=== PATIENT | female | born 1940 | race Caucasian/White ===

== ENCOUNTER 2023-02-24 12:38 | Emergency (ER) | payer MEDICARE, BC ==
[~2023-02-24] VITALS: Ht 162.6 cm; Wt 68.5 kg
[2023-02-24 12:42] VITALS: TEMP 97.9
[2023-02-24 13:35] LABS: BASOPHILS % (AUTO) 0.1 % (0.0-2.0); EOSINOPHILS % (AUTO) 0.4 % (0.0-6.0); HEMATOCRIT 32 % (33-45); HEMOGLOBIN 10.9 g/dL (11.5-14.8); INR 0.99 (0.91-1.10); LYMPHOCYTES # (AUTO) 0.4 K/uL (0.8-4.8); LYMPHOCYTES % (AUTO) 4.2 % (20.0-44.0); MEAN CORPUSCULAR HEMOGLOBIN 32 PG (26.0-33.0); MEAN CORPUSCULAR HGB CONC 34 g/dl (31.0-36.0); MEAN CORPUSCULAR VOLUME 95 fL (82-100); MONOCYTES # (AUTO) 0.3 K/uL (0.1-1.30); MONOCYTES % (AUTO) 2.8 % (2.0-12.0); NEUTROPHILS # (AUTO) 8.8 K/uL (1.8-8.9); NEUTROPHILS % (AUTO) 92.5 % (43.0-81.0); PLATELET COUNT (AUTO) 159 K/uL (150-450); PROTHROMBIN TIME 10.5 SECS (9.2-11.1); RED BLOOD CELL COUNT(AUTO) 3.37 MIL/uL (4.0-5.2); RED CELL DISTRIBUTION WIDTH 18.7 % (11.5-15.0); WHITE BLOOD COUNT (AUTO) 9.5 K/uL (4.3-11.0)
[2023-02-24 13:36] LABS: CALCIUM, SERUM 9.8 mg/dL (8.5-10.1); CARBON DIOXIDE 30 mmol/L (21-32); CHLORIDE 93 mmol/L (98-107); CREATININE 1.2 mg/dL (0.6-1.3); GLUCOSE 106 mg/dL (74-106); POTASSIUM 3.9 mmol/L (3.5-5.1); SODIUM SERUM 130 mmol/L (136-145); UREA NITROGEN, BLOOD 45 mg/dL (7-18)
[2023-02-24 13:49] LABS: THYROID STIMULATING HORMONE 0.932 uIU/mL (0.358-3.74)
[2023-02-24 14:26] LABS: ABG BASE EXCESS 1.7 mmol/L; ABG PCO2 29.3 mmHg (35.0-45.0); ABG PH 7.528 (7.350-7.450); ABG PO2 59.1 mmHg (75.0-100.0); ABG TOTAL HEMOGLOBIN 11.2 G/dL (12.0-16.0); COHb 0.1 % (0.5-1.5); MetHb 0.2 % (0.0-1.5); O2Hb 90.7 % (94.0-97.0); SITE, ABG Right Radial; VENT MODE, BG ROOM AIR
[2023-02-24] MEDS ORDERED: HEPARIN INFUSION/D5W 500 ML IV PRN (15:00)
[2023-02-24] MEDS ORDERED: FUROSEMIDE 40 MG/4 ML VIAL IV ONE (15:00)
[2023-02-24] MEDS ORDERED: CEFEPIME 1 GM in IV D5W 50 ML IV ONE (15:00)
[2023-02-24] MEDS ORDERED: VANCOMYCIN 1 GM in IV D5W 250 ML IV ONE (15:00)
[2023-02-24] MEDS ORDERED: HEPARIN SODIUM, PORCINE 5000 UNITS/1 ML VIAL IV ONE (15:00)
[2023-02-24] MEDS ORDERED: LEVE500T9 PO (15:05)
[2023-02-24] MEDS ORDERED: PRED2.5T PO (15:05)
[2023-02-24] MEDS ORDERED: LIOT50TA2 PO (15:05)
[2023-02-24] MEDS ORDERED: FURO-145 PO (15:05)
[2023-02-24] MEDS ORDERED: FUROSEMIDE 40 MG/4 ML VIAL ONE (15:20)
[2023-02-24 15:47] LABS: APPEARANCE,URINE SLIGHTLY CLOUDY (CLEAR); BILIRUBIN,URINE NEGATIVE (NEGATIVE); BLOOD, URINE NEGATIVE Ery/uL (NEGATIVE); COLOR,URINE YELLOW (YELLOW); KETONES,URINE NEGATIVE (NEGATIVE); LEUKOCYTE ESTERASE ,URINE 1+ (NEGATIVE); NITRITE, URINE NEGATIVE (NEGATIVE); PROTEIN,URINE NEGATIVE (NEGATIVE); UGLUCOSE NEGATIVE (NEGATIVE); UROBILINOGEN,URINE 0.2 EU/dL (0.2)
[2023-02-24] MEDS ORDERED: FOLI0.4T6 PO (16:27)
[2023-02-24] MEDS ORDERED: MAGN500T2 PO (16:27)
[2023-02-24] MEDS ORDERED: LIOT5TAB11 PO (16:27)
[2023-02-24] MEDS ORDERED: PANT40TA2 PO (16:27)
[2023-02-24 16:28] LABS: LACTIC ACID 2.2 mmol/L (0.4-2.0)
[2023-02-24 17:17] LABS: ADD URINE CULTURE YES; BACTERIA,URINE 4+ /HPF (None Seen); RBC,URINE NONE SEEN /HPF (0-2)
[2023-02-24 17:18] LABS: SQUAMOUS EPITHELIAL CELL,UR None Seen /HPF (None Seen)
[2023-02-24 17:29] LABS: BAND % (MANUAL) 2 % (0.0-5.0); LYMPHOCYTES % (MANUAL) 1 % (16-48); METAMYELOCYTES % 6 % (0-0); MONOCYTES % (MANUAL) 1 % (0-11.0); MYELOCYTES % 4 % (0-0); NEUTROPHILS % (MANUAL) 86 (42-76); PLATELET ESTIMATE ADEQUATE
[2023-02-24 18:39] LABS: BILIRUBIN,DIRECT 0.2 mg/dL (0.0-0.2); BILIRUBIN,TOTAL 0.6 mg/dL (0.2-1.0)
[2023-02-24 18:43] LABS: LACTIC ACID REFLEX 1.5 mmol/L (0.4-1.9)
[2023-02-24 19:35] VITALS: BP 163/79; O2SAT 99
== END 2023-02-24 20:23 | disposition short-term general hospital (02) ==
LOC: ER 12:48
DX: I82.403 Acute embolism and thrombosis of unspecified deep veins of lower extremity, bilateral (principal); J96.91 Respiratory failure, unspecified with hypoxia; J81.1 Chronic pulmonary edema; J18.9 Pneumonia, unspecified organism; Z79.899 Other long term (current) drug therapy; Z88.5 Allergy status to narcotic agent
CPT/HCPCS: 99291; 93970; 96365; 71275; 71045; 96375; 96368; 93005 ×2; 82803; 82247; 82248; 85025; 80048; 87040 ×2; 87086; 83605 ×2; 85610; 85730; 81001; 36415; 84443; 84484; 83880; 36600 ×2; 85007; J1940; J1644 ×2; J3370; J7060; J0692; A4223